=== PATIENT | female | born 1985 | race Caucasian/White ===

== ENCOUNTER 2017-04-03 06:48 | Inpatient (IN) | payer BC ==
[~2017-04-03] VITALS: Ht 165.1 cm; Wt 78.3 kg
--- NOTE | ~2017-04-03 | OR ---
PATIENT'S NAME: CARLYLE ANDREW [facility] AGE: 31 Y [address] ROOM: [place] [id number] LOCATION: [facility] ADMIT DATE: 04/03/2017 OR/Procedure Report DISCHARGE DATE: 04/05/2017 FAMILY PHYSICIAN: Ariela Lobato MD ATTENDING PHYSICIAN: Trudy Johnston SURGEON: Trudy Johnston MD MARKETING/SALES PERSON: DATE OF PROCEDURE: 04/03/2017 PREOPERATIVE DIAGNOSES: 1. Intrauterine at 39 weeks. 2. Group B strep positive. 3. Induction of labor. POSTOPERATIVE DIAGNOSES: 1. Intrauterine at 39 weeks. 2. Group B strep positive. 3. Induction of labor. PROCEDURE: Spontaneous vaginal delivery. ESTIMATED BLOOD LOSS: 300 mL. ANESTHESIA: Epidural. FINDINGS: Female infant, score 8 and 9. Weight is pending. Estimated blood loss 300 mL. INDICATIONS: This patient is a 31-year-old, G2, P2-0-0-2 female, she was admitted for induction of labor. She had artificial rupture of membranes, followed by Pitocin and progressed to complete. She underwent expulsive efforts for just a couple of contractions. DESCRIPTION OF PROCEDURE: With expulsive effort, the head delivered over an intact perineum. The rest of fetus delivered. The nose and mouth were bulb suctioned. The cord was clamped and cut. The was handed to awaiting team. Cord blood was drawn. The placenta was delivered with manual traction. No lacerations were noted. COMPLICATIONS: None. CONDITION: Mom stable in room. to nursery. PATIENT'S NAME: CARLYLE ANDREW [facility] AGE: 31 Y [address] ROOM: [place] [address] LOCATION: [facility] ADMIT DATE: 04/03/2017 OR/Procedure Report DISCHARGE DATE: 04/05/2017 FAMILY PHYSICIAN: Ariela Lobato MD ATTENDING PHYSICIAN: Trudy Johnston MD MILEY AQUINO/roxannl /[id number] d: 04/18/17 1121 t: 05/06/17 0859, OPERATIVE SUMMARY
[2017-04-03 07:36] LABS: BASOPHIL # 0.1 K/uL (0.0-0.2); BASOPHIL % 0.5 %; EOSINOPHIL # 0.1 K/uL (0.0-0.5); EOSINOPHIL % 0.7 %; HEMATOCRIT 35.7 % (33.0-46.0); HEMOGLOBIN 12.4 g/dL (11.0-15.0); IMMATURE GRANULOCYTE # 0.1 K/uL (0.0-0.3); IMMATURE GRANULOCYTE % 0.9 %; LYMPHOCYTE # 2.2 K/uL (0.8-4.0); LYMPHOCYTE % 21.3 %; MCH 30.9 pg (27.0-34.0); MCHC 34.7 gm/dL (32.0-36.5); MONOCYTE % 9.9 %; MPV 9.5 fl (9.4-12.4); NEUTROPHIL % 66.7 %; NRBC % 0 /100WBC (0-0.00); PLATELET COUNT 147 K/uL (150-450); RBC 4.01 M/uL (3.50-5.00); RDW-CV 12.7 % (11.9-14.6); WBC 10.5 K/uL (4.0-11.0)
[2017-04-03] MEDS ORDERED: PRENATAL 1+1)(P1 TAB PO (08:02)
--- NOTE | 2017-04-03 17:46 | NUR ---
VS WNL, FUNDUS FIRM, SMALL FLOW, USING TEA PAD, MOTRIN GIVEN 1714, PT SHOWERED AND TOLLERATED ACTIVITY WELL, ROOM TIDY COMPLETE, HAS MENU TO ORDER FOOD, IV SALINE LOCKED.
[2017-04-04 04:41] LABS: BASOPHIL # 0.1 K/uL (0.0-0.2); BASOPHIL % 0.5 %; EOSINOPHIL # 0.1 K/uL (0.0-0.5); EOSINOPHIL % 0.5 %; HEMATOCRIT 32.4 % (33.0-46.0); HEMOGLOBIN 11.1 g/dL (11.0-15.0); IMMATURE GRANULOCYTE # 0.1 K/uL (0.0-0.3); IMMATURE GRANULOCYTE % 0.6 %; LYMPHOCYTE # 2.4 K/uL (0.8-4.0); LYMPHOCYTE % 22.1 %; MCHC 34.3 gm/dL (32.0-36.5); MCV 90.5 fl (83.0-98.0); MONOCYTE # 1.1 K/uL (0.0-1.0); MONOCYTE % 10.1 %; MPV 9.3 fl (9.4-12.4); NEUTROPHIL # (ANC) 7.3 K/uL (1.8-7.8); NEUTROPHIL % 66.2 %; NRBC % 0 /100WBC (0-0.00); PLATELET COUNT 139 K/uL (150-450); RBC 3.58 M/uL (3.50-5.00); RDW-CV 12.9 % (11.9-14.6)
--- NOTE | 2017-04-04 05:07 | NUR ---
VSS, firm midline, small flow, motrin last at 0110, IV out
--- NOTE | 2017-04-04 17:50 | NUR ---
Last VS: T:98.5 P:90 R: 16 BP: 124/60 Pain ratin Last pain med: Motrin Medicated at: 1701 Effective: Yes Breasts: , Nipples: Fundus: FIRM Lochia: SMALL Epis/Perineum: TENDER/INTACT, (uses teapads/ice diapers prn) Voiding well: Y Significant event: *.UP AD GWENDOLYN, MAY WANT JACUZZI BATH THIS EVENING. HOME TMRW
--- NOTE | 2017-04-05 04:41 | NUR ---
VSS. VOIDING WITHOUT DIFFICULTY AND PASSING GAS. . WILL GO HOME TODAY. FUNDUS FIRM, -1, SMALL FLOW. USING TEAPADS. LAST HAD PERC AT 2304 AND MOTRIN AT 0333.
[2017-04-05] MEDS ORDERED: SURFAK240 MG PO (09:22)
[2017-04-05] MEDS ORDERED: MOTRIN800 MG PO (09:22)
[2017-04-05] MEDS ORDERED: PRENATAL 1+1)(P1 TAB PO (09:22)
[2017-04-05] MEDS ORDERED: NORCO 5-325 TA1 EACH PO (09:25)
== END 2017-04-05 10:35 | disposition disaster alternative care site (69) | DRG 775 ==
LOC: GOBS 06:48 → GOBM 06:48 → GOBS 06:49
PROVIDERS: ADMIT Obstetrics & Gynecology
PROC: 10E0XZZ Delivery of Products of Conception, External Approach (ICD-10-PCS; principal; 2017-04-03)
PROC: 3E033VJ Introduction of Other Hormone into Peripheral Vein, Percutaneous Approach (ICD-10-PCS; principal; 2017-04-03)
PROC: 10907ZC Drainage of Amniotic Fluid, Therapeutic from Products of Conception, Via Natural or Artificial Opening (ICD-10-PCS; principal; 2017-04-03)
DX: O80 Encounter for full-term uncomplicated delivery (principal); O99.824 Streptococcus B carrier state complicating childbirth; Z3A.39 39 weeks gestation of pregnancy; Z37.0 Single live birth
CPT/HCPCS: J2001; J2540; J2590; J3010; J7120

== ENCOUNTER 2017-04-08 19:06 | Emergency (ER) | payer BC ==
--- NOTE | ~2017-04-08 | ER ---
PATIENT'S NAME: CARLYLE ANDREW [facility] AGE: 31 Y [address] ROOM: [place] [address] LOCATION: [facility] ADMIT DATE: 04/08/2017 ER/Outpatient Report DISCHARGE DATE: FAMILY PHYSICIAN: Lidia Lobato ATTENDING PHYSICIAN: Lata Mehta Time of Arrival: 1906 hours. Time Seen: 1950 hours. IDENTIFICATION: A 31-year-old female. CHIEF COMPLAINT: Pelvic pain, chills, and temperature . HISTORY OF PRESENT ILLNESS: The patient is a 31-year-old, female 5 days from a normal vaginal delivery, without complications. She was group B strep positive early in the , negative at 36-week check, but was treated intrapartum. She is . She has no dysuria, no increased frequency of urination. No evidence of mastitis. ALLERGIES: NO KNOWN DRUG ALLERGIES. CURRENT MEDICATIONS: vitamins. MEDICAL PROBLEMS: Denies. PAST SURGICAL HISTORY: Three vaginal deliveries, cholecystectomy, and appendectomy. SOCIAL HISTORY: The patient lives here in [place]. 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 Tobacco use, denies. Alcohol use, denies. Drug use, denies. REVIEW OF SYSTEMS: All systems reviewed and negative other than what is noted in the HPI. PHYSICAL EXAMINATION: VITAL SIGNS: Height 5 feet 5 inches and weight 71.1 kg. Blood pressure 139/91, pulse 113, respirations 18, temperature 100.7, and saturations 96%. LUNGS: Clear to auscultation. PATIENT'S NAME: CARLYLE ANDREW [facility] AGE: 31 Y [address] ROOM: [place] [address] LOCATION: [facility] ADMIT DATE: 04/08/2017 ER/Outpatient Report DISCHARGE DATE: FAMILY PHYSICIAN: Lidia Lobato ATTENDING PHYSICIAN: Lata Mehta HEART: Sinus tachycardia. ABDOMEN: Bowel sounds present. Soft, nondistended, tender in the low abdomen. ABDOMEN: No rebound or guarding. SKIN: Tarina, warm, and dry. No lesions or rashes noted. NEURO: No focal deficit. PELVIC: External genitalia normal. Vagina, moderate lochia. Uterus, mildly tender. No adnexal masses or tenderness. Cervix is closed. LABORATORY DATA: GC and chlamydia were obtained. White count 11.1, 78% neutrophils, hemoglobin 12.7, and platelets 191. Chemistry panel is unremarkable. Cath UA: 2-5 white cells, 5-10 epithelial cells. IMPRESSION: endometritis. PLAN: Augmentin 875 b.i.d. Tylenol or ibuprofen for fever or pain. Pelvic rest. Side effects of Augmentin and breast-feeding were discussed. Follow up with Lobato in 1 day. Follow up sooner if any problems or concerns. The patient and her understand and agree, and all questions have been answered. LATA MEHTA MD CAR/modl /[id number] d: 04/08/17 2255 t: 04/09/17 0525, OUTPATIENT REPORT
[~2017-04-08 19:06] MED LIST: MOTRIN800 MG PO; NORCO 5-325 TA1 EACH PO; PRENATAL 1+1)(P1 TAB PO; SURFAK240 MG PO
[2017-04-08 20:06] LABS: BILIRUBIN URINE NEGATIVE (NEGATIVE); BLOOD URINE 25 /UL (NEGATIVE); COLOR URINE YELLOW (YELLOW); GLUCOSE URINE NEGATIVE (NEGATIVE); KETONE URINE NEGATIVE (NEGATIVE); LEUKOCYTES URINE 25 /UL (NEGATIVE); NITRITE URINE NEGATIVE (NEGATIVE); PH URINE 6.5 (4.0-8.0); PROTEIN URINE NEGATIVE (NEGATIVE); TURBIDITY URINE 1+ (CLEAR); UROBILINOGEN URINE NORMAL (NORMAL)
[2017-04-08 20:13] LABS: BACTERIA URINE FEW (NEGATIVE); RBC URINE 0-2 #/HPF (NEGATIVE)
[2017-04-08 20:16] LABS: BASOPHIL % 0.4 %; EOSINOPHIL # 0.1 K/uL (0.0-0.5); EOSINOPHIL % 0.7 %; HEMATOCRIT 36.8 % (33.0-46.0); HEMOGLOBIN 12.7 g/dL (11.0-15.0); IMMATURE GRANULOCYTE % 0.3 %; LYMPHOCYTE # 1.4 K/uL (0.8-4.0); LYMPHOCYTE % 12.6 %; MCH 31.2 pg (27.0-34.0); MCHC 34.5 gm/dL (32.0-36.5); MCV 90.4 fl (83.0-98.0); MONOCYTE # 0.9 K/uL (0.0-1.0); MPV 8.6 fl (9.4-12.4); NEUTROPHIL # (ANC) 8.7 K/uL (1.8-7.8); NRBC % 0 /100WBC (0-0.00); RBC 4.07 M/uL (3.50-5.00); RDW-CV 12.6 % (11.9-14.6); WBC 11.1 K/uL (4.0-11.0)
[2017-04-08 20:17] LABS: PLATELET COUNT 191 K/uL (150-450)
[2017-04-08 20:32] LABS: ALK PHOS 111 IU/L (33-138); ALT 30 IU/L (12-78); ANION GAP 12.9 (10.0-19.0); AST 17 IU/L (10-40); BLOOD UREA NITROGEN 13 mg/dL (6-24); CALCIUM 9.2 mg/dL (8.5-10.5); CHLORIDE 105 mMol/L (96-110); CO2 25 mMol/L (22-32); CREATININE 0.6 mg/dL (0.5-1.1); ESTIMATED GFR (MDRD EQUATION) > 60; POTASSIUM 3.9 mMol/L (3.7-5.1); SODIUM 139 mMol/L (135-145); TOTAL BILIRUBIN 0.5 mg/dL (0.0-1.5)
== END 2017-04-08 20:42 | disposition disaster alternative care site (69) ==
LOC: GMED 19:06
PROVIDERS: Family Medicine
DX: O86.12 Endometritis following delivery (principal); N71.9 Inflammatory disease of uterus, unspecified; Z90.49 Acquired absence of other specified parts of digestive tract